=== PATIENT | female | born 1990 | race Caucasian/White ===

== ENCOUNTER 2016-09-23 00:55 | Emergency (ER) | payer OTHER ==
[~2016-09-23] VITALS: Ht 154.9 cm; Wt 68.0 kg
[2016-09-23 00:59] VITALS: BP 138/90
--- NOTE | 2016-09-23 01:25 | NUR ---
TO ER BED 8
--- NOTE | 2016-09-23 01:30 | NUR ---
PT IS 25/F BIB SELF TO ED WITH C/O COUGH FOR 10DAYS, VOMITING,X 2 DAYS CHEST HURTS WHEN SHE COUGH DENIES D; SKIN IS PINK/WARM/DRY; AAOX4 WITH EVEN AND STEADY GAIT; LUNGS CLEAR BL; HR EVEN AND REGULAR; PT DENIES ANY FEVER, SOB AT THIS TIME; PATIENT STATES PAIN OF 7/10 AT THIS TIME; VSS; PATIENT POSITIONED FOR COMFORT; HOB ELEVATED; BEDRAILS UP X2; BED DOWN. ER MD MADE AWARE OF PT STATUS.
--- NOTE | 2016-09-23 01:40 | NUR ---
Patient being evaluated by physician at bedside.
--- NOTE | 2016-09-23 02:53 | NUR ---
PT TAKEN OFF UNIT TO X-RAY VIA WHEELCHAIR
[2016-09-23 03:16] VITALS: BP 128/79
--- NOTE | 2016-09-23 03:17 | NUR ---
Patient discharged with v/s stable. Written and verbal after care instructions given and explained. Patient alert, oriented and verbalized understanding of instructions. Ambulatory with steady gait. All questions addressed prior to discharge. ID band removed. Patient advised to follow up with PMD. Rx of ALBUTEROL, ZOFRAN ODT given. Patient educated on indication of medication including possible reaction and side effects. Opportunity to ask questions provided and answered.
== END 2016-09-23 03:16 | disposition home or self-care (01) ==
LOC: MED 00:55
DX: J06.9 Acute upper respiratory infection, unspecified (principal)